=== PATIENT | female | born 1965 | race Hispanic/Latino ===

== ENCOUNTER 2017-03-13 23:50 | Emergency (ER) | payer MEDICARE, OTHER ==
[2017-03-14] VITALS: BMI 32.5
[2017-03-14 00:14] VITALS: TEMP 98.1
--- NOTE | 2017-03-14 00:21 | ED PDOC ---
Arrival/HPI - General Chief Complaint: Substance Abuse Time Seen by Provider: 03/13/17 23:53 Historian: Patient - History of Present Illness Narrative History of Present Illness (Text): 03/14/17 00:20 Yessenia Agarwal is a 51 year old female who presents to the Emergency department after taking 17-18 tablets of Valium tonight. Patient states she felt upset earlier tonight, took 17-18 tablets of Valium, and drank a 6-pack of beer. Patient denies any fever, chills, chest pain, shortness of breath, nausea, vomiting, diarrhea, urinary symptoms, back pain, neck pain, headache, dizziness , or any other complaints. Time/Duration: Other (tonight) Symptom Onset: Gradual Symptom Course: Unchanged Activities at Onset: Rest, Light Context: Home Past Medical History - Provider Review Nursing Documentation Reviewed: Yes - Psychiatric Hx Depression: Yes Hx Substance Use: Yes Family/Social History - Physician Review Nursing Documentation Reviewed: Yes Family/Social History: No Known Family HX Smoking Status: y Hx Alcohol Use: Yes Hx Substance Use: Yes Allergies/Home Meds Allergies/Adverse Reactions: Allergies No Known Allergies Allergy (Verified 03/14/17 00:05) Home Medications: Home Meds Medication Instructions Recorded Confirmed Cyclobenzaprine [Cyclobenzaprine 10 mg PO TID 03/14/17 03/14/17 HCl] Desvenlafaxine Succinate [Pristiq] 50 mg PO DAILY 03/14/17 03/14/17 Meclizine HCl [Motion Sickness 25 mg PO TID 03/14/17 03/14/17 Relief] diaZEpam [Valium] 5 mg PO BID 03/14/17 03/14/17 Review of Systems - Physician Review All systems were reviewed & negative as marked: Yes - Review of Systems Constitutional: Normal. absent: Fevers Eyes: Normal ENT: Normal Respiratory: Normal. absent: SOB, Cough Cardiovascular: Normal. absent: Chest Pain Gastrointestinal: Normal. absent: Abdominal Pain, Diarrhea, Nausea, Vomiting Genitourinary Female: Normal. absent: Dysuria, Frequency, Hematuria, Urine Output Changes Musculoskeletal: Normal. absent: Back Pain, Neck Pain Skin: Normal. absent: Rash Neurological: Normal. absent: Headache, Dizziness Endocrine: Normal Hemo/Lymphatic: Normal Psychiatric: Depression Physical Exam Vital Signs Reviewed: Yes Vital Signs Temp Pulse Resp BP Pulse Ox 03/14/17 05:40 79 17 118/61 98 03/14/17 00:13 98.1 F 91 H 16 112/71 97 Temperature: Afebrile Blood Pressure: Normal Pulse: Regular Respiratory Rate: Normal Appearance: Positive for: Well-Appearing, Non-Toxic, Comfortable Pain Distress: None Mental Status: Positive for: Lethargic (Slightly lethargic) - Systems Exam Head: Present: Atraumatic, Normocephalic Pupils: Present: PERRL Extroacular Muscles: Present: EOMI Conjunctiva: Present: Normal Mouth: Present: Moist Mucous Membranes Neck: Present: Normal Range of Motion Respiratory/Chest: Present: Clear to Auscultation, Good Air Exchange. No: Respiratory Distress, Accessory Muscle Use Cardiovascular: Present: Regular Rate and Rhythm, Normal S1, S2. No: Murmurs Abdomen: Present: Normal Bowel Sounds. No: Tenderness, Distention, Peritoneal Signs Back: Present: Normal Inspection Upper Extremity: Present: Normal Inspection. No: Cyanosis, Edema Lower Extremity: Present: Normal Inspection. No: Edema Neurological: Present: GCS=15, CN II-XII Intact, Speech Normal Skin: Present: Warm, Dry, Normal Color. No: Rashes Psychiatric: Present: Alert, Lethargic (Slightly lethargic) Medical Decision Making ED Course and Treatment: 03/14/17 00:20 Impression: 51 year old female presents after taking 17-18 tablets of Valium tonight. Differential Diagnosis include but are not limited to: depression vs. overdose Plan: -- EKG -- Labs, alcohol level -- Urinalysis, urine drug screen -- Reassess and disposition Progress Notes: Reviewed EKG, NSR at [address]-segment elevations or depressions, no T-wave inversions, normal intervals. 03/14/17 02:52 Reviewed labs, Alcohol: 173. Positive benzodiazepines. 03/14/17 05:05 Pt seen and evaluated by JAYLON Brownlee, who discussed case with psychiatrist. Pt will be d/c home with outpatient f/u for mood disorder. Pt agreeable with plan. - Lab Interpretations Lab Results: 03/14/17 00:35 03/14/17 00:35 Lab Results 03/14/17 00:48: Urine HCG, Qual Negative 03/14/17 00:48: Urine Opiates Screen Negative, Urine Methadone Screen Negative, Ur Barbiturates Screen Negative, Ur Phencyclidine Scrn Negative, Ur Amphetamines Screen Negative, U Benzodiazepines Scrn Positive H, U Oth Cocaine Metabols Negative, U Cannabinoids Screen Negative 03/14/17 00:48: Urine Color Yellow, Urine Appearance Clear, Urine pH 6.0, Ur Specific [place] <= 1.005, Urine Protein Negative, Urine Glucose (UA) Negative, Urine Ketones Negative, Urine Blood Negative, Urine Nitrate Negative, Urine Bilirubin Negative, Urine Urobilinogen 0.2, Ur Leukocyte Esterase Negative 03/14/17 00:35: Alcohol, Quantitative 173 H 03/14/17 00:35: Salicylates < 1 L, Acetaminophen < 10.0 L 03/14/17 00:35: Sodium 145, Potassium 4.2, Chloride 105, Carbon Dioxide 27, Anion Gap 17, BUN 6 L, Creatinine 0.7, Est GFR ( Amer) > 60, Est GFR (Non -Af Amer) > 60, Random Glucose 94, Calcium 9.4, Total Bilirubin 0.6, AST 37, ALT 52, Alkaline Phosphatase 86, Total Protein 8.5 H, Albumin 4.6, Globulin 4.0 , Albumin/Globulin Ratio 1.2 03/14/17 00:35: WBC 11.2 H, RBC 4.61, Hgb 15.7, Hct 43.4, MCV 94.1, MCH 34.1, MCHC 36.2, RDW 12.6, Plt Count 242, MPV 10.4, Neutrophils % (Manual) 36 L, Band Neutrophils % 3 H, Lymphocytes % (Manual) 58 H, Monocytes % (Manual) 1, Eosinophils % (Manual) 1, Basophils % (Manual) 1, Platelet Evaluation Normal I have reviewed the lab results: Yes - EKG Interpretation Interpreted by ED Physician: Yes Type: 12 lead EKG - Scribe Statement The provider has reviewed the documentation as recorded by the Scribvidal Yao All medical record entries made by the Bobibe were at my direction and personally dictated by me. I have reviewed the chart and agree that the record accurately reflects my personal performance of the history, physical exam, medical decision making, and the department course for this patient. I have also personally directed, reviewed, and agree with the discharge instructions and disposition. Disposition/Present on Arrival - Present on Arrival Any Indicators Present on Arrival: No History of DVT/PE: No History of Uncontrolled Diabetes: No Urinary Catheter: No History of Decub. Ulcer: No History Surgical Site Infection Following: None - Disposition Have Diagnosis and Disposition been Completed?: Yes Diagnosis: Mood disorder, drug-induced Disposition: HOME/ ROUTINE Disposition Time: 05:00 Condition: GOOD Referrals: Apple Arevalo DO [Primary Care Provider] - Follow up with primary
[2017-03-14 01:11] LABS: URINE BILIRUBIN NEGATIVE (NEGATIVE); URINE BLOOD NEGATIVE (NEGATIVE); URINE GLUCOSE (UA) NEGATIVE (NEGATIVE); URINE KETONE NEGATIVE (NEGATIVE); URINE LEUKOCYTE ESTERASE NEGATIVE Leu/uL (NEGATIVE); URINE PROTEIN NEGATIVE mg/dL (<30 mg/dL); URINE UROBILINOGEN 0.2 E.U./dL (<1 E.U./dL)
[2017-03-14 01:11] LABS: HEMATOCRIT 43.4 % (36.0-48.0); MEAN CELL VOLUME 94.1 fL (80.0-105.0); MEAN CORPUSCULAR HEMOGLOBIN 34.1 pg (25.0-35.0); MEAN CORPUSCULAR HGB CONC 36.2 g/dl (31.0-37.0); MEAN PLATELET VOLUME 10.4 fl (7.0-11.0); PLATELET COUNT 242 10^3/uL (120.0-450.0); RED CELL DISTRIBUTION WIDTH 12.6 % (11.5-14.5); WHITE BLOOD COUNT 11.2 10^3/ul (4.5-11.0)
[2017-03-14 01:16] LABS: ADD MANUAL DIFF? YES
[2017-03-14 01:17] LABS: URINE COLOR YELLOW (YELLOW)
[2017-03-14 01:18] LABS: URINE APPEARANCE CLEAR (CLEAR)
[2017-03-14 01:19] LABS: ALB/GLOB RATIO 1.2 (1.1-1.8); ALKALINE PHOSPHATASE 86 U/L (38-133); ALT/SGPT 52 U/L (7-56); AST/SGOT 37 U/L (15-39); BILIRUBIN,TOTAL 0.6 mg/dL (0.2-1.3); BLOOD UREA NITROGEN 6 mg/dL (7-21); CALCIUM 9.4 mg/dL (8.4-10.5); CARBON DIOXIDE 27 mmol/L (21-33); CHLORIDE 105 mmol/L (95-110); GFR AFRICAN-AMERICAN > 60; GLUCOSE,RANDOM 94 mg/dL (70-110); POTASSIUM 4.2 mmol/L (3.6-5.0); SODIUM 145 mmol/L (132-148); TOTAL PROTEIN 8.5 g/dL (5.8-8.3)
[2017-03-14 02:15] LABS: BAND 3 % (0-2); BASOPHIL 1 % (0.0-1.0); EOSINOPHIL 1 % (0.0-3.0); NEUTROPHIL 36 % (50.0-70.0)
[2017-03-14 02:16] LABS: PLATELET ESTIMATE NORMAL (NORMAL)
[2017-03-14 05:50] VITALS: BP 118/61; PULSE 79; RESP 17; O2SAT 98
--- NOTE | 2017-03-14 10:44 | CARD ---
APPROVED REPORT EKG Measurement Heart [id number] <Conclusion> Normal sinus rhythm NSSTW changes
== END 2017-03-14 05:40 | disposition home or self-care (01) ==
LOC: ED 23:50
DX: F19.94 Other psychoactive substance use, unspecified with psychoactive substance-induced mood disorder (principal)
CPT/HCPCS: 80053; 81003; 84703; 85025; 93005; 99283; G0480